=== PATIENT | female | born 1960 | race African-American/Black ===

== ENCOUNTER 2016-12-12 08:06 | Outpatient (CLI) ==
[2015-06-29 17:50] VITALS: BMI 36.9
[2016-12-12 08:16] LABS: BASOPHILS % (AUTO) 0.7 % (0.0-3.0); EOSINOPHILS # (AUTO) 0.2 K/ul (0.0-0.7); EOSINOPHILS % (AUTO) 2.9 % (0.0-7.0); HEMATOCRIT 41.6 % (37.0-47.0); HEMOGLOBIN 13.4 g/dl (12.0-16.0); IMMATURE GRANULOCYTE % (AUTO) 0.4 % (0.0-5.0); LYMPHOCYTES # (AUTO) 2.2 K/uL (0.60-3.4); LYMPHOCYTES % (AUTO) 40.8 (10.0-50.0); MEAN CORPUSCULAR HEMOGLOBIN 26.8 pg (27.0-31.0); MEAN CORPUSCULAR HGB CONC 32.2 (31.8-35.4); MEAN CORPUSCULAR VOLUME 83.2 fl (81.0-99.0); MONOCYTES # (AUTO) 0.3 K/uL (0.4-2.0); MONOCYTES % (AUTO) 5.1 (0-10); NEUTROPHILS # (AUTO) 2.7 K/ul (2.0-6.9); NEUTROPHILS % (AUTO) 50.1; PLATELET COUNT 265 10^3/uL (140-440); WHITE BLOOD COUNT 5.47 K/ul (4.6-10.2)
[2016-12-12 08:57] LABS: ALBUMIN 3.7 g/dL (3.4-5.0); ALBUMIN/GLOBULIN RATIO 0.95; BILIRUBIN,TOTAL 0.29 mg/dL (0.00-1.20); BUN/CREATININE RATIO 21.17; CALCIUM 9.3 mg/dL (8.2-10.2); CHOL/HDL RATIO 4.4 (4.5-5.5); CREATININE 0.85 mg/dL (0.60-1.30); TOTAL PROTEIN 7.6 g/dL (6.4-8.2)
--- NOTE | 2016-12-12 10:01 | MAMMO ---
EXAM: Digital screening mammogram HISTORY: Screening COMPARISON: None FINDINGS: Digital MLO and CC views of the right and left breast were performed. There are scatter ed fibroglandular densities. There is no evidence for mass, asymmetry, distortion, or suspicious ca lcifications in either breast. IMPRESSION: 1. No evidence of malignancy in the right or left breast. 2. Annual screening mammogram is recommended in one year. BIRADS category 1, negative examination
== END 2016-12-12 08:07 | disposition home or self-care (01) ==
LOC: RAD 08:06
PROVIDERS: ATTEND Nurse Practitioner Family
DX: Z12.31 Encounter for screening mammogram for malignant neoplasm of breast (principal); Z00.00 Encounter for general adult medical examination without abnormal findings
CPT/HCPCS: 36415; 80053; 80061; 84443; 85025

== ENCOUNTER 2016-12-24 14:00 | Outpatient (CLI) ==
[2015-06-29 17:50] VITALS: BMI 36.9
== END 2016-12-24 14:01 | disposition home or self-care (01) ==
LOC: LAB 14:00
PROVIDERS: ATTEND Nurse Practitioner Family
DX: R19.7 Diarrhea, unspecified (principal)
CPT/HCPCS: 87015; 87045; 87493; 87899

== ENCOUNTER 2017-05-24 10:14 | Outpatient (CLI) ==
[2015-06-29 17:50] VITALS: BMI 36.9
--- NOTE | 2017-05-25 11:07 | MRI ---
EXAM: Cervical spine MRI without contrast. HISTORY: Neck pain. COMPARISON: Cervical spine CT scan 06/29/2015. TECHNIQUE: Multiplanar, multisequence MR images were acquired of the cervical spine without contras t. FINDINGS: There is mild mid-cervical dextroscoliosis centered at C4-5 and loss of usual smooth cerv ical lordosis with 1.5 mm retrolisthesis of C5 on C6 and C6 on C7. There is incomplete segmentation of the C3 and C4 vertebral bodies and posterior elements, greater on the left with mild hypoplasia of the left C3 and C4 vertebral bodies and posterior elements compared to the right. A rudimentary C3-4 intervertebral disc is present. There is osteophytosis with disc space narrowing and mild dege nerative endplate changes at C5-6 and ventral spondylosis at C6-7. Canal diameter is developmentall y narrow. There is no cerebellar tonsillar ectopia. The cervical cord has normal signal intensity. There are no paravertebral masses. The visualized lung apices are clear. C2-3: The intervertebral disc is normal. There is mild left hypertrophic facet arthropathy without foraminal stenosis. C3-4: There is a rudimentary intervertebral disc and there is a minor right paracentral bony ridge without central canal stenosis. There is ankylosis of both facet joints and there is mild hypoplasi a of the right facet joint compared to the left. There is no central canal stenosis or foraminal st enosis. C4-5: There is a posterior disc osteophyte complex that is asymmetric to the right which mildly fla ttens the right ventral cervical cord and effaces the right lateral recess where may adversely conta ct the right C5 nerve roots. There is right uncovertebral hypertrophy and moderate left hypertrophi c facet arthropathy. These findings cause minor spinal stenosis and mild to moderate left and severe right neural foraminal stenosis. AP diameter of the thecal sac is 9.5 mm. C5-6: There is a diffuse disc osteophyte complex that is asymmetric to the right, ligamentum flavum hypertrophy and bilateral uncovertebral hypertrophy, greater on the right. This causes mild spinal stenosis, mild to moderate left neural foraminal stenosis and severe right neural foraminal stenosi s. AP diameter of the thecal sac is 8.6 mm. C6-7: There is a diffuse disc osteophyte complex with a small central disc protrusion that effaces the anterior subarachnoid space. Ligamentum flavum hypertrophy, bilateral uncovertebral hypertrophy and mild bilateral hypertrophic facet arthropathy is present, greater on the right. There is mild spinal stenosis and mild right and moderate left neural foraminal stenosis. AP diameter of the thec al sac is 8.2 mm. C7-T1: The intervertebral disc is normal. Moderate right and mild left hypertrophic facet arthropa thy is present with mild bright STIR signal edema involving the right facet joint which may be due t o increased stress at this level. There is mild right neural foraminal stenosis. IMPRESSION: 1. 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 2. Mild mid-cervical dextroscoliosis centered at C4-5. 3. Mild to moderate cervical degenerative spondylosis with minor C4-5 and mild to C5-6 and C6-7 spi nal stenosis. 4. Small central disc protrusion C6-7. 5. Multilevel foraminal stenosis.
== END 2017-05-24 10:15 | disposition home or self-care (01) ==
LOC: RAD 10:14
PROVIDERS: ATTEND Nurse Practitioner Family
DX: M54.2 Cervicalgia (principal); T14.90 Injury, unspecified; W19.XXXA Unspecified fall, initial encounter

== ENCOUNTER 2018-01-05 15:45 | Outpatient (CLI) ==
[2015-06-29 17:50] VITALS: BMI 36.9
== END 2018-01-05 15:46 | disposition home or self-care (01) ==
LOC: RHC-LAB 15:45
PROVIDERS: ATTEND Emergency Medicine
DX: J06.9 Acute upper respiratory infection, unspecified (principal); R68.89 Other general symptoms and signs
CPT/HCPCS: 87651; 87804

== ENCOUNTER 2018-04-03 11:04 | Outpatient (CLI) | payer OTHER ==
[2015-06-29 17:50] VITALS: BMI 36.9
--- NOTE | 2018-04-06 09:33 | MAMMO ---
EXAM: Bilateral digital screening mammogram (2-D and 3-D) History: Screening Comparison: Bilateral mammogram 12/12/2016 Findings: MLO and CC views of bilateral breasts demonstrate scattered fibroglandular breast parenchy ma. There are no dominant masses, no suspicious microcalcifications and no architectural distortions . CAD was reviewed by the radiologist. Tomosynthesis was performed. Impression: Stable negative mammogram. Recommend followup routine screening mammography in 1 year. BIRADS 1
== END 2018-04-03 11:05 | disposition home or self-care (01) ==
LOC: RAD 11:04
PROVIDERS: ATTEND Emergency Medicine
DX: Z12.31 Encounter for screening mammogram for malignant neoplasm of breast (principal)
CPT/HCPCS: 77067

== ENCOUNTER 2018-06-21 15:02 | Outpatient (CLI) ==
[2015-06-29 17:50] VITALS: BMI 36.9
== END 2018-06-21 15:03 | disposition home or self-care (01) ==
LOC: FCC-LAB 15:02
PROVIDERS: ATTEND Family Medicine
DX: R53.81 Other malaise (principal); R00.2 Palpitations; R21 Rash and other nonspecific skin eruption; M13.0 Polyarthritis, unspecified; L65.9 Nonscarring hair loss, unspecified
CPT/HCPCS: 36415; 80053; 80061; 84439; 84443; 85025; 85651; 86038; 86140